=== PATIENT | female | born 1955 | race Caucasian/White ===

== ENCOUNTER 2023-01-18 08:24 | Inpatient (IN) | payer MEDICARE, OTHER ==
[~2023-01-18] VITALS: Ht 157.5 cm; Wt 69.4 kg
[~2023-01-18 08:24] MED LIST: ONDA4TAB11 PO
[2023-01-18] MEDS ORDERED: MORPHINE SULFATE INJ 2 MG/ML DISP.SYRIN IV ONE (09:30)
[2023-01-18] MEDS ORDERED: ONDANSETRON HCL/PF - ER 4 MG/2 ML VIAL IV ONE (09:30)
[2023-01-18] MEDS ORDERED: ALBU8.5H8 IH ×2 (12:56)
[2023-01-18] MEDS ORDERED: PRED5TAB PO (12:56)
[2023-01-18] MEDS ORDERED: LABE100T5 PO (12:56)
[2023-01-18] MEDS ORDERED: PANT40TA49 PO (12:56)
[2023-01-18] MEDS ORDERED: BENZ1TAB7 PO (12:56)
[2023-01-18] MEDS ORDERED: MYCO180T3 PO (12:56)
[2023-01-18] MEDS ORDERED: MAGN100T3 PO (12:56)
[2023-01-18] MEDS ORDERED: ONDA-97 PO (12:56)
[2023-01-18] MEDS ORDERED: TACR1CAP7 PO (12:56)
[2023-01-18] MEDS ORDERED: MULT-754 PO (12:56)
[2023-01-18] MEDS ORDERED: CARB1TAB21 PO (12:56)
[2023-01-18] MEDS ORDERED: BENZ-13 PO (12:56)
[2023-01-18] MEDS ORDERED: VALG450T4 PO (12:56)
[2023-01-18] MEDS ORDERED: HALO5TAB PO (12:56)
[2023-01-18 14:05] LABS: BASOPHILS % (AUTO) 0.2 % (0.0-2.0); EOSINOPHILS % (AUTO) 0.1 % (0.0-6.0); HEMATOCRIT 40 % (33-45); HEMOGLOBIN 13.4 g/dL (11.5-14.8); LYMPHOCYTES # (AUTO) 0.8 K/uL (0.8-4.8); LYMPHOCYTES % (AUTO) 5.4 % (20.0-44.0); MEAN CORPUSCULAR HEMOGLOBIN 32 PG (26.0-33.0); MEAN CORPUSCULAR HGB CONC 33 g/dl (31.0-36.0); MEAN CORPUSCULAR VOLUME 97 fL (82-100); MONOCYTES # (AUTO) 0.7 K/uL (0.1-1.30); MONOCYTES % (AUTO) 4.3 % (2.0-12.0); NEUTROPHILS # (AUTO) 14.1 K/uL (1.8-8.9); PLATELET COUNT (AUTO) 181 K/uL (150-450); RED BLOOD CELL COUNT(AUTO) 4.18 MIL/uL (4.0-5.2); RED CELL DISTRIBUTION WIDTH 13.2 % (11.5-15.0); WHITE BLOOD COUNT (AUTO) 15.7 K/uL (4.3-11.0)
[2023-01-18 14:17] LABS: CREATININE 0.9 mg/dL (0.6-1.3); POTASSIUM 4.3 mmol/L (3.5-5.1)
[2023-01-18 15:47] VITALS: BP 141/105; TEMP 99.1; O2SAT 92
[2023-01-18] MEDS ORDERED: Z GUARD REMEDY 4 OZ OINT TP PRN (16:00)
[2023-01-18] MEDS ORDERED: MAGNESIUM HYDROXIDE 30 ML UDC PO PRN (16:00)
[2023-01-18] MEDS ORDERED: ACETAMINOPHEN 325 MG TABLET PO PRN (16:00)
[2023-01-18] MEDS ORDERED: MAG HYDROX/AL HYDROX/SIMETH 30 ML UDC PO PRN (16:00)
[2023-01-18] MEDS ORDERED: CARBIDOPA/LEVODOPA 25/100 MG 1 UDTAB PO SCH (16:00)
[2023-01-18] MEDS ORDERED: ONDANSETRON HCL/PF 4 MG/2 ML VIAL IVP PRN (16:00)
[2023-01-18] MEDS ORDERED: HALOPERIDOL 5 MG TABLET PO SCH (16:00)
[2023-01-18] MEDS ORDERED: MORPHINE SULFATE INJ 2 MG/ML DISP.SYRIN IV PRN (16:00)
[2023-01-18] MEDS ORDERED: ALBUTEROL FS 2.5 MG/3 ML VIAL.NEB NEB PRN (16:30)
[2023-01-18] MEDS: ENOXAPARIN SODIUM 40 MG/0.4 ML DISP.SYRIN SQ SCH (16:41)
[2023-01-18] MEDS: MYCOPHENOLATE SODIUM 180 MG TABLET.DR PO SCH (17:35)
[2023-01-18 17:52] VITALS: O2SAT 97
[2023-01-18] MEDS: ALBUTEROL FS 2.5 MG/3 ML VIAL.NEB NEB SCH (17:52)
[2023-01-18 18:02] VITALS: O2SAT 99
[2023-01-18] MEDS: IV NS 0.9% 1,000 ML IV PRN (18:13)
[2023-01-18] MEDS: HALOPERIDOL 5 MG TABLET PO SCH (22:07)
[2023-01-19 05:48] LABS: BASOPHILS # (AUTO) 0.1 K/uL (0.0-0.2); BASOPHILS % (AUTO) 0.5 % (0.0-2.0); EOSINOPHILS # (AUTO) 0.2 K/uL (0.0-0.7); EOSINOPHILS % (AUTO) 2.2 % (0.0-6.0); HEMATOCRIT 37 % (33-45); HEMOGLOBIN 12.4 g/dL (11.5-14.8); LYMPHOCYTES # (AUTO) 1.4 K/uL (0.8-4.8); LYMPHOCYTES % (AUTO) 14.1 % (20.0-44.0); MEAN CORPUSCULAR HEMOGLOBIN 32 PG (26.0-33.0); MEAN CORPUSCULAR HGB CONC 33 g/dl (31.0-36.0); MEAN CORPUSCULAR VOLUME 97 fL (82-100); MONOCYTES # (AUTO) 0.6 K/uL (0.1-1.30); MONOCYTES % (AUTO) 6.6 % (2.0-12.0); NEUTROPHILS # (AUTO) 7.5 K/uL (1.8-8.9); NEUTROPHILS % (AUTO) 76.6 % (43.0-81.0); PLATELET COUNT (AUTO) 152 K/uL (150-450); RED BLOOD CELL COUNT(AUTO) 3.82 MIL/uL (4.0-5.2); RED CELL DISTRIBUTION WIDTH 13.4 % (11.5-15.0); WHITE BLOOD COUNT (AUTO) 9.7 K/uL (4.3-11.0)
[2023-01-19 06:07] LABS: CREATININE 0.8 mg/dL (0.6-1.3); MAGNESIUM 1.5 mg/dL (1.8-2.4); PHOSPHORUS 3.3 mg/dL (2.5-4.9); POTASSIUM 3.9 mmol/L (3.5-5.1)
[2023-01-19] MEDS: ALBUTEROL FS 2.5 MG/3 ML VIAL.NEB NEB SCH ×2 (08:43→16:46)
[2023-01-19 08:44] VITALS: O2SAT 97
[2023-01-19 08:56] VITALS: O2SAT 94
[2023-01-19] MEDS ORDERED: VALGANCICLOVIR HYDROCHLORIDE 450 MG PO SCH (09:00)
[2023-01-19] MEDS: TACROLIMUS ANHYDROUS 0.5 MG CAPSULE PO SCH (09:25)
[2023-01-19] MEDS: HALOPERIDOL 5 MG TABLET PO SCH ×2 (09:25→20:55)
[2023-01-19] MEDS: PANTOPRAZOLE 40 MG TABLET.DR PO SCH (09:25)
[2023-01-19] MEDS: CARBIDOPA/LEVODOPA 25/100 MG 1 UDTAB PO SCH (09:26)
[2023-01-19] MEDS: LABETALOL HCL (100MG) 100 MG TABLET PO SCH ×2 (09:26→16:15)
[2023-01-19] MEDS: MYCOPHENOLATE SODIUM 180 MG TABLET.DR PO SCH ×2 (09:32→16:14)
[2023-01-19] MEDS: predniSONE 5 MG TABLET PO SCH (09:32)
[2023-01-19] MEDS ORDERED: MAGNESIUM OXIDE 400 MG TABLET PO ONE (10:00)
[2023-01-19] MEDS: MORPHINE SULFATE INJ 2 MG/ML DISP.SYRIN IV PRN ×2 (10:19→21:48)
[2023-01-19] MEDS: IV NS 0.9% 1,000 ML IV PRN (10:20)
[2023-01-19] MEDS: ENOXAPARIN SODIUM 40 MG/0.4 ML DISP.SYRIN SQ SCH (16:17)
[2023-01-19 16:46] VITALS: O2SAT 97
[2023-01-19 22:02] LABS: APPEARANCE,URINE SLIGHTLY CLOUDY (CLEAR); BILIRUBIN,URINE NEGATIVE (NEGATIVE); BLOOD, URINE TRACE-INTA Ery/uL (NEGATIVE); COLOR,URINE YELLOW (YELLOW); KETONES,URINE NEGATIVE (NEGATIVE); LEUKOCYTE ESTERASE ,URINE 1+ (NEGATIVE); NITRITE, URINE POSITIVE (NEGATIVE); PH,URINE 6.5 (5.0-8.0); PROTEIN,URINE NEGATIVE (NEGATIVE); UGLUCOSE NEGATIVE (NEGATIVE); UROBILINOGEN,URINE 0.2 EU/dL (0.2)
[2023-01-19 22:32] LABS: ADD URINE CULTURE YES; BACTERIA,URINE Many /HPF (None Seen); RBC,URINE 0-2 /HPF (0-2); SQUAMOUS EPITHELIAL CELL,UR Rare /HPF (None Seen)
[2023-01-19] MEDS ORDERED: CEFTRIAXONE 1 G in IV D5W 50 ML IV SCH (23:00)
[2023-01-19] MEDS ORDERED: CEFTRIAXONE 1GM BAG (ER ONLY) 50 ML IV ONE (23:15)
[2023-01-20 07:51] LABS: CALCIUM, SERUM 7.3 mg/dL (8.5-10.1); CREATININE 0.7 mg/dL (0.6-1.3); MAGNESIUM 1.6 mg/dL (1.8-2.4); PHOSPHORUS 2.8 mg/dL (2.5-4.9); POTASSIUM 3.4 mmol/L (3.5-5.1)
[2023-01-20 08:00] VITALS: BP 163/83; TEMP 98.8; O2SAT 96
[2023-01-20 08:16] LABS: THYROID STIMULATING HORMONE 1.942 uIU/mL (0.358-3.74); URIC ACID 2.5 mg/dL (2.6-7.2)
[2023-01-20] MEDS: predniSONE 5 MG TABLET PO SCH (08:51)
[2023-01-20] MEDS: ENOXAPARIN SODIUM 40 MG/0.4 ML DISP.SYRIN SQ SCH ×2 (08:51→18:28)
[2023-01-20] MEDS: HALOPERIDOL 5 MG TABLET PO SCH (08:52)
[2023-01-20] MEDS: PANTOPRAZOLE 40 MG TABLET.DR PO SCH (08:52)
[2023-01-20] MEDS: LABETALOL HCL (100MG) 100 MG TABLET PO SCH ×2 (08:52→18:32)
[2023-01-20] MEDS: TACROLIMUS ANHYDROUS 0.5 MG CAPSULE PO SCH (08:53)
[2023-01-20] MEDS: CARBIDOPA/LEVODOPA 25/100 MG 1 UDTAB PO SCH (08:53)
[2023-01-20] MEDS: MYCOPHENOLATE SODIUM 180 MG TABLET.DR PO SCH ×2 (09:24→18:29)
[2023-01-20] MEDS: MORPHINE SULFATE INJ 2 MG/ML DISP.SYRIN IV PRN (09:24)
[2023-01-20] MEDS ORDERED: MAGNESIUM OXIDE 400 MG TABLET PO ONE (10:00)
[2023-01-20] MEDS ORDERED: POTASSIUM CHLORIDE 20 MEQ TAB.PRT.SR PO SCH (10:30)
[2023-01-20] MEDS ORDERED: CEPH250C PO (11:22)
[2023-01-20 16:00] VITALS: BP 146/98; TEMP 99.1
[2023-01-20 18:32] VITALS: BP 146/98
[2023-01-25] MEDS ORDERED: CARBIDOPA/LEVODOPA 25/100 MG 1 UDTAB PO SCH (09:00)
[2023-02-01] MEDS ORDERED: CARBIDOPA/LEVODOPA 25/100 MG 1 UDTAB PO SCH (09:00)
[2023-02-08] MEDS ORDERED: CARBIDOPA/LEVODOPA 25/100 MG 1 UDTAB PO SCH (09:00)
[2023-02-15] MEDS ORDERED: CARBIDOPA/LEVODOPA 25/100 MG 1 UDTAB PO SCH ×3 (09:00→22:00)
== END 2023-01-20 23:01 | DRG 536 ==
LOC: ER 08:26 → MEDSG1 15:28
PROVIDERS: ADMIT Nurse Practitioner Acute Care; ATTEND Nurse Practitioner Acute Care
DX: S32.592A Other specified fracture of left pubis, initial encounter for closed fracture (principal); N39.0 Urinary tract infection, site not specified; Z94.0 Kidney transplant status; M48.54XA Collapsed vertebra, not elsewhere classified, thoracic region, initial encounter for fracture; E22.2 Syndrome of inappropriate secretion of antidiuretic hormone; W01.0XXA Fall on same level from slipping, tripping and stumbling without subsequent striking against object, initial encounter; I10 Essential (primary) hypertension; D72.829 Elevated white blood cell count, unspecified; M43.16 Spondylolisthesis, lumbar region; M89.8X9 Other specified disorders of bone, unspecified site; G20.A1 Parkinson's disease without dyskinesia, without mention of fluctuations; M41.86 Other forms of scoliosis, lumbar region; Z79.60 Long term (current) use of unspecified immunomodulators and immunosuppressants; Y93.9 Activity, unspecified; Y92.89 Other specified places as the place of occurrence of the external cause; E87.6 Hypokalemia
CPT/HCPCS: 36415; 72128-TC; 72131-TC; 73502; 73700-TC; 80048-TC; 80061-TC; 81001; 83735-TC; 84100-TC; 84443-TC; 84550-TC; 85025-TC; 87086-TC; 97110-TC; 97116-TC; 97530-TC; G0378; J0696; J1650; J2270; J2405; J7030; J7060; J7507; J7512; J7518